=== PATIENT | female | born 1955 | race Caucasian/White ===

== ENCOUNTER 2016-12-03 13:16 | Outpatient (CLI) | payer OTHER ==
--- NOTE | 2016-12-18 17:54 | Mammography Report ---
DIGITAL SCREENING MAMMOGRAM: 12/03/2016 CLINICAL INDICATION: A 61-year-old with a history of benign biopsies, history of late childbearing f or screening. COMPARISON: Films from [place], [place] dated 03/23/2015. TECHNIQUE: Routine CC and MLO projections were obtained of the breasts. The breasts again demonstrate heterogeneously dense fibroglandular parenchyma bilaterally. There is an increasing parenchymal asymmetry in the left upper central breast posteriorly. Further evaluation with spot compression views and possible ultrasound is recommended. No mammographically suspicious findings are appreciated in the right breast. Coarse, typically benign calcifications are present. IMPRESSION: INCOMPLETE EXAMINATION. RECOMMENDATION: ADDITIONAL EVALUATION OF THE LEFT BREAST ABOVE. BIRADS CATEGORY: 0, INCOMPLETE. STANDARD QUALIFYING STATEMENTS 1. This examination was reviewed with the aid of Computed-Aided Detection (CAD). 2. A negative or benign imaging report should not delay biopsy if clinically suspicious findings are present. Consider surgical consultation if warranted. More than 5% of cancers are not identified b y imaging. 3. Dense breasts may obscure an underlying neoplasm. JOB #: [id number] EXT JOB #:[id number]
== END 2016-12-03 13:17 | disposition home or self-care (01) ==
LOC: DI 13:16
PROVIDERS: ATTEND Internal Medicine
DX: Z12.31 Encounter for screening mammogram for malignant neoplasm of breast (principal); R92.8 Other abnormal and inconclusive findings on diagnostic imaging of breast
CPT/HCPCS: 77067

== ENCOUNTER 2016-12-26 13:29 | Outpatient (CLI) | payer OTHER ==
--- NOTE | 2016-12-26 15:56 | Ultrasound Report ---
LEFT BREAST ULTRASOUND: 12/26/2016 CLINICAL INDICATION: Abnormal mammogram. TECHNIQUE: Real-time scanning was performed with sales utility representative static images obtained. FINDINGS: Ultrasound of the 12 o'clock position of the left breast was performed. Approximately 5 cm from the nipple, there is an island of unremarkable parenchyma noted in the retrog landular fat. No sonographically suspicious findings are appreciated. IMPRESSION: ISLAND OF FIBROGLANDULAR PARENCHYMA, CORRELATING WITH THE MAMMOGRAPHIC ABNORMALITY. RECOMMENDATION: ROUTINE ANNUAL SCREENING UNLESS OTHERWISE CLINICALLY INDICATED. BIRADS CATEGORY 1-NEGATIVE. JOB #: [id number] EXT JOB #:[id number]
--- NOTE | 2016-12-26 16:15 | Mammography Report ---
DIGITAL DIAGNOSTIC LEFT MAMMOGRAM: 12/26/2016 CLINICAL INDICATION: Asymmetry left upper central posterior breast. TECHNIQUE: Left true lateral and spot compression views. COMPARISON: 12/03/2016, 03/23/2014. FINDINGS: The left breast again demonstrates heterogeneously dense fibroglandular parenchyma. In the left upper posterior breast, the asymmetry partially dissipates on additional compression. There alison ears to be fat scattered throughout the asymmetry on the spot compression views, compatible with an i sland of fibroglandular parenchyma. Please also refer to left breast ultrasound of the same day. No a ssociated calcifications are seen. IMPRESSION: BENIGN FINDINGS, WITH AN ISLAND OF FIBROGLANDULAR PARENCHYMA ACCOUNTING FOR THE ASYMMETR Y. RECOMMENDATION: ROUTINE ANNUAL SCREENING UNLESS OTHERWISE CLINICALLY INDICATED. BIRADS CATEGORY 2-BENIGN FINDINGS. STANDARD QUALIFYING STATEMENTS 1. This examination was reviewed with the aid of Computer-Aided Detection (CAD). 2. A negative or benign imaging report should not delay biopsy if clinically suspicious findings are present. Consider surgical consultation if warranted. More than 5% of cancers are not identified by i maging. 3. Dense breasts may obscure an underlying neoplasm. JOB #: [id number] EXT JOB #:[id number]
== END 2016-12-26 13:30 | disposition home or self-care (01) ==
LOC: DI 13:29
PROVIDERS: ATTEND Internal Medicine
DX: R92.8 Other abnormal and inconclusive findings on diagnostic imaging of breast (principal)
CPT/HCPCS: 76642

== ENCOUNTER 2019-02-20 13:34 | Outpatient (CLI) | payer OTHER ==
--- NOTE | 2019-02-23 10:56 | Mammography Report ---
Reason: ROUTINE MAMMO Procedure Date: 02/20/2019 Accession Number: [id number] / [id number] Procedure: PATRICIA - Screening Mammo w/[facility] CPT Code: Final Report FULL RESULT: EXAM: Screening Mammo w/[facility] DATE: 02/20/2019 1:51 PM CLINICAL HISTORY: Screening encounter. History of late childbearing. History of benign left and right breast biopsy. TECHNIQUE: (B) - Bilateral CC and MLO views were obtained. COMPARISON: 12/26/2016 through 03/23/2014. PARENCHYMAL PATTERN: (D) - The breast(s) demonstrate(s) heterogeneously dense fibroglandular parenchyma. FINDINGS: Bilateral postsurgical changes are again seen. A nodular appearing tissue island in the posterior left central breast is a isodense to breast parenchyma and demonstrates long-term stability with no suspicious associated features, typically benign. This region was previously diagnostically evaluated with spot imaging and ultrasound and found to contain fat, most consistent with island of glandular tissue. There are no suspicious masses, calcifications, or areas of distortion. IMPRESSION: Benign findings. BI-RADS category 2. RECOMMENDATION: (ANNUAL) - Recommend routine annual screening mammography. BI-RADS CATEGORY: (2) - Benign Findings. STANDARD QUALIFYING STATEMENTS: 1. This examination was not reviewed with the aid of Computer-Aided Detection (CAD). 2. A negative or benign imaging report should not preclude biopsy if clinically suspicious findings are present. 3. Dense breasts may obscure an underlying neoplasm. 4. This examination was reviewed with the aid of 3D breast imaging (tomosynthesis).
== END 2019-02-20 13:35 | disposition home or self-care (01) ==
LOC: DI 13:34
DX: Z12.31 Encounter for screening mammogram for malignant neoplasm of breast (principal)
CPT/HCPCS: 77063; 77067

== ENCOUNTER 2020-08-01 09:59 | Outpatient (CLI) | payer MEDICARE, OTHER ==
--- NOTE | 2020-08-05 09:12 | Mammography Report ---
BILATERAL DIGITAL SCREENING MAMMOGRAM 3D/2D: 08/01/2020 CLINICAL: Routine screening. Comparison is made to exams dated: 02/20/2019 mammogram, 12/26/2016 mammogram, 12/03/2016 mammogram - [facility], 03/23/2014 mammogram - [facility] [place], and 12/26/2016 ultrasound - [facility]. The tissue of both breasts is heterogeneously dense. Thi s may lower the sensitivity of mammography. There is a benign mass in the left breast. There also are benign post operative findings in both hope asts. No significant masses, calcifications, or other findings are seen in either breast. There has been no significant interval change. IMPRESSION: BENIGN There is no mammographic evidence of malignancy. A 1 year screening mammogram is recommended. This exam was interpreted at Station ID: [id number]. NOTE: For mammograms, a report in lay terms will be sent to the patient. Approximately 15% of breast malignancies will not be visualized mammographically. In the management of a palpable breast mass, a negative mammogram must not discourage biopsy of a clinically suspicious lesion. Electronically Signed By: Sundeep Cross M.D. [facility] [place]/penrad:08/04/2020 07:49:03 ACR BI-RADS Category 2: Benign Finding(s) 3342F PARENCHYMAL PATTERN: (D) - The breast(s) demonstrate(s) heterogeneously dense fibroglandular iker mckenzie. BI-RADS CATEGORY: (2) - 2 RECOMMENDATION: (ANNUAL) - Recommend routine annual screening mammography. [id number] 1 year screening LATERALITY: (B)
== END 2020-08-01 10:00 | disposition home or self-care (01) ==
LOC: DI 09:59
DX: Z12.31 Encounter for screening mammogram for malignant neoplasm of breast (principal)

== ENCOUNTER 2020-09-27 10:52 | Outpatient (CLI) | payer MEDICARE, OTHER ==
--- NOTE | 2020-09-27 12:22 | DEXA Report ---
PROCEDURE: Dexa Spine and/or Hip INDICATIONS: POST MENOPAUSAL TECHNIQUE: Dual energy x-ray absorptiometry (DXA) was performed on a [employer] System. Regions measur ed are the AP Spine, femoral neck, and if needed forearm. COMPARISON: None. FINDINGS: Lumbar Spine: Bone Mineral Density 1.275 g/cm/cm,T score 0.8. Left Hip: Bone Mineral Density 0.930 g/cm/cm,T scores -0.6. Left Femoral Neck: Bone Mineral Density 0.831 g/cm/cm, T score -1.5. (T score greater or equal to -1.0: NORMAL) (T score from -1.1 to -2.4: OSTEOPENIA) (T score less than or equal to -2.5 to: OSTEOPOROSIS) Impression: Osteopenia. Patients with diagnosis of osteoporosis or osteopenia should have regular bone mineral density assess ment. For those eligible for Medicare, routine testing is allowed once every 2 years. Testing frequ ency can be increased for patients who have rapidly progressing disease or for those who are receivin g medical therapy to restore bone mass. Reviewed by: Billy Zaragoza MD on 09/27/2020 12:20 PM PDT Approved by: Billy Zaragoza MD on 09/27/2020 12:20 PM PDT Station ID: [id number]
== END 2020-09-27 10:53 | disposition home or self-care (01) ==
LOC: DI 10:52
PROVIDERS: ATTEND Internal Medicine
DX: M85.88 Other specified disorders of bone density and structure, other site (principal); Z78.0 Asymptomatic menopausal state

== ENCOUNTER 2021-09-26 13:27 | Outpatient (CLI) | payer MEDICARE, OTHER ==
--- NOTE | 2021-09-27 08:11 | Mammography Report ---
BILATERAL DIGITAL SCREENING MAMMOGRAM 3D/2D: 09/26/2021 CLINICAL: Routine screening. Comparison is made to exams dated: 08/01/2020 mammogram, 02/20/2019 mammogram, 12/26/2016 mammogram, mammogram - [facility], and 03/23/2014 mammogram - [facility] [place]. The tissue of both breasts is heterogeneously dense. This may lower the sensitivity of ma mmography. There is a benign mass in the left breast. There also are benign post operative findings in both hope asts. No significant masses, calcifications, or other findings are seen in either breast. There has been no significant interval change. IMPRESSION: BENIGN There is no mammographic evidence of malignancy. A 1 year screening mammogram is recommended. Based on the Tyrer Cuzick model (a risk assessment model) the patients lifetime risk is 10.8% and he r 10 year risk is 5.4%. According to the ACR, ACS, and NCCN guidelines, an annual breast MRI exam tanisha ng with mammogram is recommended if the patients lifetime risk is 20% or greater. This exam was interpreted at Station ID: [id number]. NOTE: For mammograms, a report in lay terms will be sent to the patient. Approximately 15% of breast malignancies will not be visualized mammographically. In the management of a palpable breast mass, a negative mammogram must not discourage biopsy of a clinically suspicious lesion. Electronically Signed By: Curly Ramírez M.D. aty/isaelrad:09/26/2021 18:31:57 ACR BI-RADS Category 2: Benign Finding(s) 3342F PARENCHYMAL PATTERN: (D) - The breast(s) demonstrate(s) heterogeneously dense fibroglandular parenchy ma. BI-RADS CATEGORY: (2) - 2 RECOMMENDATION: (ANNUAL) - Recommend routine annual screening mammography. [id number] 1 year screening LATERALITY: (B)
== END 2021-09-26 13:28 | disposition home or self-care (01) ==
LOC: DI 13:27
DX: Z12.31 Encounter for screening mammogram for malignant neoplasm of breast (principal)

== ENCOUNTER 2023-01-17 13:55 | Outpatient (CLI) | payer MEDICARE, OTHER ==
--- NOTE | 2023-01-17 16:05 | Mammography Report ---
BILATERAL DIGITAL SCREENING MAMMOGRAM 3D/2D: 01/17/2023 CLINICAL: Routine screening. Comparison is made to exams dated: 09/26/2021 mammogram, 08/01/2020 mammogram, 02/20/2019 mammogram, mammogram, 12/03/2016 mammogram - [facility], and 03/23/2014 mammogram - [facility]. Both breasts are heterogeneously dense, which may obscure small masses (category c / 51-75% glandular tissue). There is a benign mass in the left breast. There also are benign post operative findings in both hope asts. No significant masses, calcifications, or other findings are seen in either breast. There has been no significant interval change. IMPRESSION: BENIGN There is no mammographic evidence of malignancy. A 1 year screening mammogram is recommended. Based on the Tyrer Cuzick model (a risk assessment model) the patients lifetime risk is 9.7% and her 10 year risk is 5.4%. According to the ACR, ACS, and NCCN guidelines, an annual breast MRI exam zoey g with mammogram is recommended if the patients lifetime risk is 20% or greater. This exam was interpreted at Station ID: [id number]. NOTE: For mammograms, a report in lay terms will be sent to the patient. Approximately 15% of breast malignancies will not be visualized mammographically. In the management of a palpable breast mass, a negative mammogram must not discourage biopsy of a clinically suspicious lesion. Electronically Signed By: Curly jaquez/cornelia:01/17/2023 15:30:22 letter sent: No_Letter ACR BI-RADS Category 2: Benign Finding(s) 3342F PARENCHYMAL PATTERN: (D) - The breast(s) demonstrate(s) heterogeneously dense fibroglandular parenchy ma. BI-RADS CATEGORY: (2) - 2 Mammogram [id number] 1 year screening LATERALITY: (B)
== END 2023-01-17 13:56 | disposition home or self-care (01) ==
LOC: DI 13:55
DX: Z12.31 Encounter for screening mammogram for malignant neoplasm of breast (principal); R92.333 Mammographic heterogeneous density, bilateral breasts